=== PATIENT | female | born 1950 | race African-American/Black ===

== ENCOUNTER 2017-04-14 19:10 | Emergency (ER) | payer SELFPAY, OTHER, MEDICARE | END 2017-04-14 19:51 | disposition left against medical advice (07) | LOC: E/R 19:10 | DX: Z53.21 Procedure and treatment not carried out due to patient leaving prior to being seen by health care provider (principal) ==

== ENCOUNTER → 2017-04-20 | Outpatient (CLI) | payer MEDICARE, OTHER | END | disposition home or self-care (01) | LOC: VAS 15:46 | DX: M79.662 Pain in left lower leg (principal) | CPT/HCPCS: 93971 ==